=== PATIENT | female | born 1985 | race Caucasian/White ===

== ENCOUNTER 2021-09-06 18:38 | Emergency (ER) | payer OTHER ==
[~2021-09-06] VITALS: Ht 162.6 cm; Wt 81.0 kg
[2021-09-06] MEDS ORDERED: [UNRECOGNIZED DRUG - OTHER] (20:54)
[2021-09-06] MEDS ORDERED: TORADOL PO (22:33)
[2021-09-06] MEDS ORDERED: PERCOCET 5/325M1 TAB PO (22:33)
[2021-09-06 22:55] VITALS: BP 137/78
== END 2021-09-06 22:55 | disposition home or self-care (01) | DRG 605 ==
LOC: ED 18:38
DX: S80.01XA Contusion of right knee, initial encounter (principal); V86.95XA Unspecified occupant of 3- or 4- wheeled all-terrain vehicle (ATV) injured in nontraffic accident, initial encounter; Y92.73 Farm field as the place of occurrence of the external cause
CPT/HCPCS: J2060